=== PATIENT | female | born 1995 | race Caucasian/White ===

== ENCOUNTER 2018-12-25 07:23 | Emergency (ER) | payer MEDICAID, SELFPAY ==
[2018-12-25 07:29] VITALS: BP 129/84; PULSE 94; RESP 15; TEMP 37; O2SAT 99; BMI 19.5
--- NOTE | 2018-12-25 07:36 | ED_ITS ---
HPI - Dental/Oral General Chief complaint: Dental/Oral Stated complaint: daisy's upper teeth x14 days Time Seen by Provider: 12/25/18 07:27 Source: patient Mode of arrival: ambulatory Limitations: no limitations History of Present Illness HPI Narrative: Patient is a 23-year-old female currently about 8 weeks presenting with dental pain. She has is been ongoing for 2 weeks she has been to 2 emergency department she finished clindamycin yesterday she still having pain. She has yet to call the dentist. She has no swelling of her face no fevers no chills. There are 2 areas of her mouth that her both the upper right and the upper left. She states the upper left hurts more than the right. She is requesting more antibiotics. MD Complaint: tooth pain Onset (ago): week(s) (2) Related Data Previous Rx's Medication Instructions Recorded clindamycin HCl 300 mg PO QID #12 cap 12/25/18 Allergies Allergy/AdvReac Type Severity Reaction Status Date / Time amoxicillin Allergy Verified 12/25/18 07:29 bacitracin Allergy Verified 12/25/18 07:29 Review of Systems Review of Systems Narrative: GENERAL: Denies chills,fever HEENT: See HPI RESPIRATORY: Denies dyspnea, cough, wheezing CARDIOVASCULAR: Denies chest pain, palpitations GASTROINTESTINAL: Denies nausea, vomiting MUSCULOSKELETAL: Denies extremity pain, injury SKIN: No rash, no laceration, no pruritus NEUROLOGIC: Denies weakness, dizziness, headache, numbness 8 point review of systems is negative except for those stated above and HPI [facility] Medical History (Acute) Social History Smoking Status: Current every day smoker Social History Smoking Status: Current every day smoker Exam Initial Vital Signs Initial Vital Signs: Vital Signs Temperature 98.6 F 12/25/18 07:29 Pulse Rate 94 H 12/25/18 07:29 Respiratory Rate 15 12/25/18 07:29 Blood Pressure 129/84 12/25/18 07:29 Pulse Oximetry 99 12/25/18 07:29 GENERAL: Well-appearing, well-nourished and in no acute distress. HEENT: No facial swelling no trismus CARDIOVASCULAR: peripheral pulses in tact, cap refill <2 sec RESPIRATORY: No respiratory distress, speaks in full sentences without difficulty EXTREMITIES: Normal range of motion, no clubbing or edema. Neurovascularly intact NEUROLOGICAL: Cranial nerves II through XII grossly intact. Normal gait and speech. SKIN: Warm, dry, no petechiae, no rashes or lesions. [facility] Adult Head Mouth w/Numbe Teeth: 1. Small abscess noted 2. Pain no abscess noted Course Vital Signs Vital signs: Vital Signs - 8 hr 12/25/18 07:29 Temperature 98.6 F Pulse Rate 94 H Respiratory Rate 15 Blood Pressure 129/84 Pulse Oximetry 99 MDM - Dental/Oral MDM Narrative Medical decision making narrative: Patient states left side of her mouth hurts more than the right side from mouth. She declined having dental block and drainage of abscess. She is given 3 more days of clindamycin. She has no sign of sepsis she has absolutely no facial swelling redness. I discussed with her it is imperative that she get into a dentist as soon as possible Discharge Plan Departure Patient Disposition: Home Clinical Impression: Dental abscess Instructions: Tooth Abscess Activity Restrictions/Additional Instructions: *You have been diagnosed with dental abscess *What to do: You must get into a dentist. *Continue to take medications as directed Clindamycin 300 mg 4 times a day for 3 more days *Follow up with your primary care provider in 2-3 days *Return to ER if you should have inability to open mouth, fevers chills facial swelling or any new, worsening or concerning symptoms Prescriptions: New clindamycin HCl 300 mg capsule 300 mg PO QID Qty: 12 RF: 0 Referrals: [facility] [Outside] Norma Jensen MD [Primary Care Provider] -
== END 2018-12-25 07:45 | disposition home or self-care (01) ==
PROVIDERS: Emergency Provider Emergency Medicine; Family Provider Pediatrics; PCP Pediatrics
DX: K04.7 Periapical abscess without sinus (principal)
CPT/HCPCS: 99282

== ENCOUNTER 2019-09-17 00:53 | Emergency (ER) | payer OTHER, SELFPAY ==
[2019-09-17 01:02] VITALS: BP 142/72; PULSE 98; RESP 20; TEMP 36.9; O2SAT 99; BMI 20.9
[2019-09-17] MEDS: CLINDAMYCIN 150 MG CAPSULE 300 MG PO (01:22)
[2019-09-17] MEDS: HYDROCODONE/ACET 5/325 PREPACK 1 BOTTLE MISC (01:23)
--- NOTE | 2019-09-17 07:32 | ED_ITS ---
HPI - Dental/Oral General Chief complaint: Dental/Oral Stated complaint: hard to swallow mouth is swollen inside Time Seen by Provider: 09/17/19 00:55 Source: patient Mode of arrival: Ambulatory Limitations: no limitations History of Present Illness HPI Narrative: 24F daily smoker with dental history presents with significant other and the chief complaint of dental pain and some left sided facial swelling over the course of the day. She denies any injury. She states her tooth broke earlier and she has been unable to contact her dentist. She denies any fever chills. She denies any bitter taste in her mouth. She is otherwise well and free of complaint MD Complaint: tooth pain Teeth map: 1. Onset (ago): hour(s) Duration: constant Severity: moderate Relieving factors: nothing Exacerbating factors: chewing Related Data Previous Rx's Medication Instructions Recorded clindamycin HCl 300 mg PO QID #40 cap 09/17/19 ketorolac 10 mg PO Q8H PRN #10 tab 09/17/19 Allergies Allergy/AdvReac Type Severity Reaction Status Date / Time amoxicillin Allergy Verified 12/25/18 07:29 bacitracin Allergy Verified 12/25/18 07:29 Review of Systems Constitutional Constitutional: Denies chills, Denies fatigue, Denies fever(s), Denies frequent falls, Denies lethargy and Denies weakness Eyes Eyes: Denies change in vision, Denies eye discharge, Denies irritation and D enies loss of vision ENT Ears, Nose, Mouth, and Throat: Denies change in voice, Reports dental pain, Denies dizziness, Denies neck pain, Denies sore throat and Denies throat swelling Cardiovascular Cardiovascular: Denies chest pain, Denies irregular heart rhythm, Denies lig htheadedness, Denies palpitations, Denies dyspnea, Denies dyspnea on exertion and Denies orthopnea Respiratory Respiratory: Denies cough, Denies dyspnea, Denies dyspnea on exertion and Denies wheezing Gastrointestinal Gastrointestinal: Denies abdominal pain, Denies change in bowel habits, Denies diarrhea, Denies nausea and Denies vomiting Musculoskeletal Musculoskeletal: Denies neck pain and Denies numbness Integumentary/Breasts Skin/Breast: Denies pruritus, Denies erythema, Denies rash and Denies wounds Neurologic Neurologic: Denies behavioral changes, Denies confusion, Denies dizziness, Denies frequent falls, Denies loss of vision, Denies numbness and Denies weakness Psychiatric Psychiatric: Denies anxiety, Denies behavioral changes, Denies confusion, Denies depression, Denies homicidal ideation and Denies suicidal ideation Endocrine Endocrine: Denies fatigue, Denies flushing and Denies palpitations Hematologic/Lymphatic Hematologic/Lymphatic: Denies easy bruising Allergic/Immunologic Allergic/Immunologic: Denies urticaria, Denies throat swelling and Denies wheezing Patient History Medical History (Acute) Social History Smoking Status: Current every day smoker Smoking Status: Current every day smoker alcohol intake frequency: 0-2 drinks per day Substance Use Type: does not use Exam Narrative Exam Narrative: GEN: AOx3 and in mild distress EYES: Pupils are equal, round, and reactive to light and accommodation. Extraoccular muscles are intact bilaterally. There is no subconjunctival hemorrh age or exudate. FACE: very mild left upper facial swelling, no redness or induration. Poor dentition with fractured left upper premolar CHEST: Lungs are clear to auscultation bilaterally and free of wheezes, rales, or rhonchi. Heart rate is regular rhythm, there are no murmurs, clicks, rubs, or gallops. There is no chest wall tenderness. ABD: Abdomen is soft and nontender. There is no guarding or rebound. Bowel sounds are normal in all 4 quadrants. There is no mass or organomegaly. EXT: Full painless ROM of all extremities with no loss of sensation or strength. SKIN: Warm, pink, and dry. No erythema or rash Initial Vital Signs Initial Vital Signs: Vital Signs Temperature 98.5 F 09/17/19 01:02 Pulse Rate 98 H 09/17/19 01:02 Respiratory Rate 20 09/17/19 01:02 Blood Pressure 142/72 H 09/17/19 01:02 Pulse Oximetry 99 09/17/19 01:02 Course Orders Ordered: Discontinued Medications Hydrocodone Bitart/Acetaminophen (Vicodin 5/325 Prepack) 1 bottle MISC SEEINSTR ONE Stop: 09/17/19 01:13 Last Admin: 09/17/19 01:23 Dose: 1 bottle Documented by: CRISTELA Clindamycin HCl (Cleocin) 300 mg PO NOW ONE Stop: 09/17/19 01:08 Last Admin: 09/17/19 01:22 Dose: 300 mg Documented by: CRISTELA Vital Signs Vital signs: Vital Signs - 8 hr 09/17/19 01:02 Temperature 98.5 F Pulse Rate 98 H Respiratory Rate 20 Blood Pressure 142/72 H Pulse Oximetry 99 Discharge Plan Departure Patient Disposition: Home Clinical Impression: Dental abscess Fracture of tooth Qualifiers: Encounter type: initial encounter Fracture type: closed Qualified Code(s): S02.5XXA - Fracture of tooth (traumatic), initial encounter for closed fracture Discharge Date/Time: 09/17/19 01:29 Instructions: Tooth Decay, Tooth Abscess, DI for Dental Pain Activity Restrictions/Additional Instructions: *You have been diagnosed with [dental pain with early abscess] *What to do: *Take medications as directed: Prescription sent to [facility] at your request *Follow up with your primary care provider in 2-3 days, call for an appointment. Let them know you were seen in the Emergency Department and that we ask that you be seen in follow up *Return to ER if you should have any new, worsening or concerning symptoms Prescriptions: New ketorolac 10 mg tablet 10 mg PO Q8H PRN (Reason: pain) Qty: 10 RF: 0 Continued clindamycin HCl 300 mg capsule 300 mg PO QID Qty: 40 RF: 0 Referrals: Bryce Garvey DMD [Physician] -
== END 2019-09-17 01:29 | disposition home or self-care (01) ==
PROVIDERS: Emergency Provider Emergency Medicine; Family Provider Pediatrics
DX: K04.7 Periapical abscess without sinus (principal); S02.5XXA Fracture of tooth (traumatic), initial encounter for closed fracture
CPT/HCPCS: 99283

== ENCOUNTER 2021-07-09 15:45 | Emergency (ER) | payer OTHER, MEDICAID, SELFPAY ==
[2021-07-09 15:53] VITALS: BP 146/100; PULSE 105; RESP 16; TEMP 37.1; O2SAT 99; BMI 20.7
--- NOTE | 2021-07-09 16:47 | DI.CT.S_ITS ---
PROCEDURE: CT FACIAL BONES WO CON INDICATIONS: dental abscess TECHNIQUE: Noncontrast 2.5 mm thick axial images acquired from the mandible through the frontal sinuses, with coronal and sagittal reformatting. For radiation dose reduction, the following was used: automated exposure control, adjustment of mA and/or kV according to patient size. COMPARISON: None. FINDINGS: Image quality: Excellent. Bones and teeth: Orbital solomon are intact. Sinus solomon show no fracture or deformity. Nasal bones and septum are intact. Visualized portions of the mandible demonstrate no fractures or subluxation. Zygomatic arches are intact. Pterygoid plates are intact. Visualized portions of the skull base and auditory canals are intact. There are moderate degenerative changes of the left temporomandibular joint. There also apparent dental caries involving the right side maxillary premolar and molar teeth as well as the right mandibular premolars. Sinuses: Paranasal sinuses are aerated, without fluid levels, mucosal thickening, or mucoceles. Mastoid air cells are aerated. Soft tissues: No edema, masses, or fluid collections. No enlarged lymph nodes. No soft tissue lacerations or debris. Vascular: Visualized vascular structures appear normal in the absence of contrast. Bony vascular foramina and canals are intact. IMPRESSION: Skin BB marker is noted over the right side of the mandibular region with apparent underlying dental caries involving both the maxillary and mandibular teeth. No evidence for organized fluid collection seen. Recommend further evaluation with dental consultation. Dictated by: Александр Stoner M.D. on 07/09/2021 at 17:20 Approved by: Александр Stoner M.D. on 07/09/2021 at 17:26
--- NOTE | 2021-07-09 16:47 | ED.DENTAL ---
HPI - Dental/Oral <Junior King PA-C - Last Filed: 07/09/21 17:59> General Chief complaint: Dental/Oral Stated complaint: tooth infection Time Seen by Provider: 07/09/21 16:36 Source: patient Mode of arrival: Ambulatory History of Present Illness HPI Narrative: Patient is a 26-year-old female who presents to the ED complaining of dental pain on the right lower portion of the jaw. She has been seen in the past and was placed on Keflex and Flagyl and for previous dental infection. She states that the pain is getting worse and that she has not had no improvement in her symptoms. She has got a evaluation with the dentist next week and presents today for continued pain. No reported fever nausea vomiting diarrhea congestion cough runny nose. Related Data Previous Rx's Medication Instructions Recorded clindamycin HCl 300 mg capsule 300 mg PO QID #40 cap 09/17/19 ketorolac 10 mg tablet 10 mg PO Q8H PRN #10 tab 09/17/19 clindamycin HCl 300 mg capsule 300 mg PO Q6H 10 Days #40 cap 07/09/21 Allergies Allergy/AdvReac Type Severity Reaction Status Date / Time amoxicillin Allergy Verified 12/25/18 07:29 bacitracin Allergy Verified 12/25/18 07:29 clindamycin Allergy Verified 07/09/21 17:11 Review of Systems <Junior King PA-C - Last Filed: 07/09/21 17:59> Review of Systems ROS Unobtainable: All systems reviewed & are unremarkable except as noted in HPI and below Constitutional Constitutional: Denies chills, Denies fatigue, Denies fever(s), Denies frequent falls, Denies lethargy and Denies weakness Eyes Eyes: Denies change in vision, Denies eye discharge, Denies irritation and Denies loss of vision ENT Ears, Nose, Mouth, and Throat: Denies change in voice, Reports dental pain, Denies dizziness, Denies neck pain, Denies sore throat and Denies throat swelling Cardiovascular Cardiovascular: Denies chest pain, Denies irregular heart rhythm, Denies lightheadedness, Denies palpitations, Denies dyspnea, Denies dyspnea on exertion and Denies orthopnea Respiratory Respiratory: Denies cough, Denies dyspnea, Denies dyspnea on exertion and Denies wheezing Gastrointestinal Gastrointestinal: Denies abdominal pain, Denies change in bowel habits, Denies diarrhea, Denies nausea and Denies vomiting Genitourinary Genitourinary: Denies hematuria, Denies flank pain, Denies urinary incontinence and Denies urinary urgency Musculoskeletal Musculoskeletal: Denies back pain, Denies muscle weakness, Denies neck pain, Denies numbness and Denies tingling Integumentary/Breasts Skin/Breast: Denies pruritus, Denies erythema, Denies rash and Denies wounds Neurologic Neurologic: Denies behavioral changes, Denies confusion, Denies dizziness, Denies frequent falls, Denies loss of vision, Denies numbness, Denies tingling and Denies weakness Psychiatric Psychiatric: Denies anxiety, Denies behavioral changes, Denies confusion, Denies depression, Denies homicidal ideation and Denies suicidal ideation Endocrine Endocrine: Denies fatigue, Denies flushing and Denies palpitations Hematologic/Lymphatic Hematologic/Lymphatic: Denies easy bruising Allergic/Immunologic Allergic/Immunologic: Denies urticaria, Denies throat swelling and Denies wheezing Patient History <Junior King PA-C - Last Filed: 07/09/21 17:59> Medical History (Updated 07/09/21 @ 17:59 by Junior King PA-C) Social History Smoking Status: Current every day smoker Smoking Status: Current every day smoker alcohol intake frequency: 0-2 drinks per day Substance Use Type: methamphetamine Exam <Junior King PA-C - Last Filed: 07/09/21 17:59> Initial Vital Signs Initial Vital Signs: Vital Signs Temperature 98.7 F 07/09/21 15:53 Pulse Rate 105 H 07/09/21 15:53 Respiratory Rate 16 07/09/21 15:53 Blood Pressure 146/100 H 07/09/21 15:53 Pulse Oximetry 99 07/09/21 15:53 Const General: cooperative, healthy appearing, comfortable and well developed Nutritional Appearance: average body habitus Orientation: Orientation [facility] Head: normal to inspection and normocephalic Ears: hearing grossly normal bilaterally, external ears normal and TM's normal bilaterally Nose: external nose normal and nares normal Face and sinus: normal facial exam, sinuses nontender and face symmetric Mouth: oral mucosae normal and lip normal Teeth and gingiva: caries, gingiva abnormal and poor dentition Throat: posterior oropharynx normal Neck Neck: normal visual inspection, full ROM and lymphadenopathy <Dean Cooley MD - Last Filed: 07/16/21 22:34> Initial Vital Signs Initial Vital Signs: Vital Signs Temperature 98.7 F 07/09/21 15:53 Pulse Rate 105 H 07/09/21 15:53 Respiratory Rate 16 07/09/21 15:53 Blood Pressure 146/100 H 07/09/21 15:53 Pulse Oximetry 99 07/09/21 15:53 Course <Junior King PA-C - Last Filed: 07/09/21 17:59> Orders Ordered: ED Orders 07/09/21 16:47 CT facial bones wo con Stat Vital Signs Vital signs: Vital Signs - 8 hr 07/09/21 15:53 Temperature 98.7 F Pulse Rate 105 H Respiratory Rate 16 Blood Pressure 146/100 H Pulse Oximetry 99 <Dean Cooley MD - Last Filed: 07/16/21 22:34> Orders Ordered: ED Orders 07/09/21 16:47 CT facial bones wo con Stat Vital Signs Vital signs: Vital Signs - 8 hr 07/09/21 15:53 Temperature 98.7 F Pulse Rate 105 H Respiratory Rate 16 Blood Pressure 146/100 H Pulse Oximetry 99 MDM - Dental/Oral <Junior King PA-C - Last Filed: 07/09/21 17:59> Differential Diagnosis Differential diagnosis: Likely dental caries Imaging Data CT-Facial: Radiologist's Impression: Signed Patient: Mayda Milner MR#: [id number] : 1995 Acct:[id number] Age/Sex: 26 / F Date of Service: 07/09/21 Loc: ED Accession Number: [id number] ?? Procedure: CT facial bones wo con Ordering Provider: Junior King P.A-C PROCEDURE:? CT FACIAL BONES WO CON ? INDICATIONS:? dental abscess ? TECHNIQUE:? Noncontrast 2.5 mm thick axial images acquired from the mandible through the frontal sinuses, with coronal and sagittal reformatting.? For radiation dose reduction, the following was used:? automated exposure control, adjustment of mA and/or kV according to patient size.? ? COMPARISON:? None. ? FINDINGS:? Image quality:? Excellent.? ? Bones and teeth:? Orbital solomon are intact.? Sinus solomon show no fracture or deformity.? Nasal bones and septum are intact.? Visualized portions of the mandible demonstrate no fractures or subluxation.? Zygomatic arches are intact.? Pterygoid plates are intact.? Visualized portions of the skull base and auditory canals are intact.? There are moderate degenerative changes of the left temporomandibular joint.? There also apparent dental caries involving the right side maxillary premolar and molar teeth as well as the right mandibular premolars. ? Sinuses:? Paranasal sinuses are aerated, without fluid levels, mucosal thickening, or mucoceles.? Mastoid air cells are aerated.? ? Soft tissues:? No edema, masses, or fluid collections.? No enlarged lymph nodes.? No soft tissue lacerations or debris.? ? Vascular:? Visualized vascular structures appear normal in the absence of contrast.? Bony vascular foramina and canals are intact.? ? IMPRESSION:? Skin BB marker is noted over the right side of the mandibular region with apparent underlying dental caries involving both the maxillary and mandibular teeth.? No evidence for organized fluid collection seen.? Recommend further evaluation with dental consultation. ? ? Dictated by: Александр Stoner M.D. on 07/09/2021 at 17:20 ? ? Approved by: Александр Stoner M.D. on 07/09/2021 at 17:26?? MDM Narrative Medical decision making narrative: Patient was evaluated today for dental pain. She has been on Keflex and Flagyl for the past week with no relief of symptoms. She describes the pain to be actually become worse. She is allergic to penicillin she has an appointment with dentist next week. CT scan shows no evidence of any dental abscess and likely result of dental caries is the reason for her pain. I did offer her a dental block of which she refused she is agreeable to take clindamycin and prescription will be sent to [facility]. Patient will be discharged home and she will follow up with her dentist. Discharge Plan Departure Patient Disposition: Home Clinical Impression: Dental caries Instructions: DI for Tooth Decay Activity Restrictions/Additional Instructions: You were seen today for dental pain. Your pain as a result of ongoing dental caries that needs to be addressed with your dental visit next week. A prescription for clindamycin was sent over to [facility] that she can roller picker at her leisure. You can follow-up with the ER if her symptoms become worse otherwise follow-up with the dentist for further evaluation. I appreciate the opportunity to care for you today. Prescriptions: New clindamycin HCl 300 mg capsule 300 mg PO Q6H 10 Days Qty: 40 0RF No Action ketorolac 10 mg tablet 10 mg PO Q8H PRN (Reason: pain) Qty: 10 0RF clindamycin HCl 300 mg capsule 300 mg PO QID Qty: 40 0RF <Dean Cooley MD - Last Filed: 07/16/21 22:34> [facility]: I was immediately available in the department for consultation. This documentation has been reviewed and I agree with assessment and plan. Supervised by Dean Cooley MD
--- NOTE | 2021-07-09 18:11 | PC.NURSE ---
pt is to the rt lower teeth, jaw, causing a headache. pt seen at [facility] ED rec'd medications, not getting better.
== END 2021-07-09 18:09 | disposition home or self-care (01) ==
PROVIDERS: Emergency Provider Physician Assistant; Family Provider Pediatrics
DX: K02.9 Dental caries, unspecified (principal); F17.200 Nicotine dependence, unspecified, uncomplicated; Z88.1 Allergy status to other antibiotic agents; Z88.0 Allergy status to penicillin
CPT/HCPCS: 70486; 99281; 99284

== ENCOUNTER 2022-07-18 22:08 | Emergency (ER) | payer OTHER, MEDICAID, SELFPAY ==
[2022-07-18 22:43] VITALS: BP 138/88; PULSE 97; RESP 16; TEMP 36.7; O2SAT 100; BMI 19.5
== END 2022-07-19 00:16 | disposition left against medical advice (07) ==
PROVIDERS: Family Provider Pediatrics
CPT/HCPCS: 99281